=== PATIENT | male | born 1955 | race Caucasian/White ===

== ENCOUNTER → 2021-01-05 | Outpatient (CLI) | payer OTHER ==
[2021-01-05 10:41] VITALS: BP 134/83
--- NOTE | 2021-01-06 13:15 | NUCLEAR STRESS TEST ---
TREADMILL NUCLEAR STRESS TEST Date of procedure: 01/05/2021. Primary care provider: Unknown. Admitting physician: Brian Luu Jr., MD. INDICATION: Abnormal ECG. BASELINE ELECTROCARDIOGRAM: Sinus rhythm with occasional premature ventricular complexes and possible old anterior myocardial infarction STRESS TEST PROCEDURE: The patient was exercised for a total of 7 minutes and 8 seconds of the standard Perez protocol achieving a maximum MET level of 8.5. The resting heart rate was 60 bpm and the peak heart rate was 142 bpm, which represents 91% of the maximum predicted heart rate. The resting blood pressure was 144/82 mmHg and the peak blood pressure was 166/79 mmHg. This represents a normal heart rate and a normal blood pressure response to exercise. The test was stopped due to fatigue. There was no chest discomfort during the test. There were frequent premature ventricular complexes as isolated and couplet beats during the test. There were no significant stress induced e lectrocardiogram changes. The patient exhibited good exercise capacity for age. NUCLEAR PROCEDURE: The patient was administered 10.2 mCi of intravenous technetium 99m Tetrofosmin at rest for the rest images. The patient was subsequently administered 30.3 mCi of intravenous technetium 99 M Tetrofosmin at peak stress for the stress images. Following an appropriate wait after each injection, imaging was obtained. The images were subsequently processed and reformatted in the usual views. Gated imaging was obtained. The image quality was adequate but with some gastrointestinal attenuation artifact. CT attenuation correction was used as a adjunct to standard imaging. Both the corrected and uncorrected images were reviewed for interpretation. NUCLEAR RESULTS: There was a small, moderate intensity, fixed apical defect with no evidence of ischemia. There was normal left ventricular chamber size with an end-diastolic volume of 119 mL and an end-systolic volume of 74 mL. There was no evidence of transient ischemic dilatation. The TID ratio was 0.96. There was moderate global hypokinesis with a calculated ejection fraction of 38%. IMPRESSION: 1. Normal heart rate and blood pressure response to exercise. 2. There was no exercise-induced chest discomfort. 3. There were frequent premature ventricular complexes during the test as isolated and couplet beats. 4. There were no stress-induced electrocardiogram changes. 5. The patient exhibited good exercise capacity for age at 7 minutes and 8 seconds. 6. There was a small, moderate intensity, fixed apical defect with no evidence of ischemia. 7. There was moderate global hypokinesis with a calculated ejection fraction of 38%. 9. This is an abnormal result showing a fixed perfusion defect with moderate left ventricular dysfunction making this a moderate risk result. Certain portions of this document may have been dictated utilizing voice recognition technology. Inherent to this technology, typographical and grammatical errors may exist. As much as I am diligent to identify and correct these mistakes, some errors may remain in the document. BRIAN LUU JR, MD Jan 06, 2021 13:15
== END ==
LOC: CARD 08:04
PROVIDERS: ATTEND Internal Medicine Cardiovascular Disease
DX: R94.31 Abnormal electrocardiogram [ECG] [EKG] (principal)
CPT/HCPCS: 78452; 93017

== ENCOUNTER 2021-02-02 09:00 | Day surgery (SDC) | payer OTHER ==
[~2021-02-02] VITALS: Ht 193 cm; Wt 68.2 kg
[2021-02-02] VITALS (10 sets, daily range): BP systolic 123–146; BP diastolic 56–68
--- OUTSIDE RECORDS SUMMARY | 2021-02-02 07:55 | XMS REPORT | Clinical Summary ---
Author Author [facility] Organization [facility] Address Unknown Phone Unavailable Care Team Providers Care Appliance Repairer Name Role Phone Anne Marie Jos M COMMERCIAL FISHER-WASTE PAPER HAMMERMILL OPERATOR PCP Source Comments Some departments are not documenting in the electronic medical record. If you d o not see the information that you expected, contact Release of Information in [facility] Information Management department at [phone] for further assistan ce in locating additional records.[facility] Allergies No Known Active Allergies Medications End Date Status Medication Sig Dispensed Refills Start Date Active aspirin EC 81 mg tablet Take 81 mg by 0 mouth daily. Take with food. Active losartan (COZAAR) 50 mg Take 50 mg by 0 tablet mouth daily. Active fish oil /omega-3 fatty Take 1 0 acids (SEA-OMEGA) capsule by 340/1000 mg capsule mouth daily. Active Problems Problem Noted Date LBBB (left bundle branch block) 04/21/2019 PVCs (premature ventricular contractions) 2018 Hypertension goal BP (blood pressure) < 140/90 05/13 PVC (premature ventricular contraction) 05/12/2018 Overview: Formatting of this note might be differ ent from the original. 02/2018 [place] ([place] Very frequent PVCs se en. MIld to moderately reduced LV systolic function; LVEF 40+-5%. Trace M R, TR, PI. 02/04/18 Stress test ([place]): normal myocard ial perfusion at rest and at stress. Septal hypokinesis is consistent with L BBB. LVEF moderately decreased at 40%. 05/30/18 Treadmill: Stress ECG on tread mill for 6 minutes 39 seconds (7 METS) to 89% predicted maximum HR (achi eved peak HR of 141 bpm). No hypertensive response with exercise. PVCs were suppressed with exercise but resumed during recovery. There were no signficant arrhythmias with exercise. The stress ECG was non-diagno stic for ischemia due to development of LBBB within 1st minute of exercise t hat persisted during stress but resolved on rest at the end of the stud y. 07/28/18 Holter: Holter monitor ran 23 hours 50 minutes. The rhythm was sinus at 47-97 bpm with a mean of 72 bp m. When the heart rate is in the 90s she has a rate related IVCD. There are 6 isolated APD's. There are no couplets or runs. There is no A. fib o r a flutter. 3.7% of all beats are PVCs (3960). There are 11 couplets. T here is one 5 beat run at one 8 beat run. These start slow and warm up to a bout 170 bpm. About one third of the PVCs are bigeminal. PVCs are essen tially 1 morphology. This includes the repetitive forms. AV conduction is 1: 1. There are no pauses. The maximum heart rate is less than 100 sug gesting that she was either very sedentary or she has chronotropic incom petence 06/11/18 EP Study: Successful ablation of PVCs from the LV summit. Normal His Purkinje function. No proximal cor onary artery abnormalities near the area of ablation Non-ischemic cardiomyopathy 05/12/2018 Overview: Formatting of this note might be differ ent from the original. 02/2018 [place] ([place]): Very frequent PVCs se en. MIld to moderately reduced LV systolic function; LVEF 40+-5%. Trace M R, TR, PI. 06/11/18 Coronary angiography: The left main coronary artery is a short vessel which immediately trifurcates in to LAD, circumflex, and ramus. There is extraluminal calcification but no significant stenosis is seen. The LAD is a medium caliber vessel whic h has a 30% stenosis in the midportion, but no high-grade lesions p roximally in the location of ablation. The distal portions of the v essel were not well seen given the limitation in angulation and views. Th e ramus vessel is medium in caliber and has a 30% stenosis in its midportio n, but no high-grade lesions are seen. The circumflex is a medium calib er dominant vessel which gives off 2 obtuse marginal branches and a left-chris ed PDA. There is diffuse mild plaquing but no significant stenosis is seen. 11/05/18 Echo: Borderline to mildly decre ased left ventricular contractility: Estimated LVEF 50%. Normal right ventri cular contractility. Pulmonary artery, pulmonic valve, and aortic arch are not well visualized. Trace pulmonic regurgitation. Mild mitral mary ular calcification. Trace mitral regurgitation. Normal aortic and tricus pid valve motion. Trace tricuspid regurgitation. Estimated PA pressure 30 mmHg. 01/06/19 [place] ([place]): Normal chamber size. EF 50-55%. Trace TR, AI, mild MR. IVC normal, RVSP 32mmHg. Frequent PVCs . Resolved Problems Problem Noted Date Resolved Date Chronic combined systolic and diastolic CHF, NYHA class 2 05/13/2018 11/05/2018 Medical History Medical History Date Comments PVC's (premature ventricular contractions) Chronic systolic heart failure (HCC) Borderline hypertension Family History Relation Name Status Comments Father Mother Social History Date Tobacco Use Types Packs/Day Years Used Quit: 01/17/2018 Former Smoker Cigarettes 0.5 17 Smokeless Tobacco: Never Used Comments Alcohol Use Standard Drinks/Week No 0 (1 standard drink = 0.6 o z pure alcohol) Alcohol Habits Answer Date Recorded How often do you have a drink containing alcohol? Never 05/12/2018 How many drinks containing alcohol do you have on No t asked a typical day when you are drinking? How often do you have six or more drinks on one Not asked occasion? Comment: Not asked Sex Assigned at Date Recorded Not on file Last Filed Vital Signs Reading Time Taken Comments Vital Sign 140/70 04/20/2019 10:16 AM VACUUM FORM OPERATOR Blood Pressure 93 04/20/2019 10:16 AM VACUUM FORM OPERATOR Pulse 36.6 C (97.8 F) 06/12/2018 9:29 AM VACUUM FORM OPERATOR Temperature - - Respiratory Rate 94% 06/12/2018 9:29 AM VACUUM FORM OPERATOR Oxygen Saturation - - Inhaled Oxygen Concentration 71.9 kg (158 lb 8 oz) 04/20/2019 10:16 AM VACUUM FORM OPERATOR Weight 193 cm (6' 4") 04/20/2019 10:16 AM VACUUM FORM OPERATOR Height 19.29 04/20/2019 10:16 AM VACUUM FORM OPERATOR Body Mass Index Plan of Treatment Health Maintenance Due Date Last Done Comments HIV SCREENING 1970 DTAP/TDAP VACCINES ( - 1973 Tdap) HEPATITIS C SCREENING 1973 PHYSICAL (COMPREHENSIVE) 1973 EXAM COLORECTAL CANCER 2005 SCREENING SHINGLES RECOMBINANT 2005 VACCINE (1 of 2) ABDOMINAL AORTIC ANEURYSM 2020 SCREENING PNEUMONIA (PPSV23) 2020 VACCINE (1 of 1 - PPSV23) INFLUENZA VACCINE 03/03/2021 Results Not on filefrom Last 3 Months Insurance Type Payer Benefit Subscriber ID Effective Phone Address Plan / Dates Group Medicare [employer] [id number] 2018-P CHOICE resent [id number] [facility] (Home) [place] [id number] Advance Directives Patient Senior Foreman Explanation Type Date Recorded Advance 2018 6:11 AM Directive/DPOA Date Inactivated Comments Code Status Date Activated 06/12/2018 12:22 PM Full Code 2018 6:20 AM Provider has discussed Code Status No, discussion no t w/Patient or Family? necessary based on Dx
--- NOTE | 2021-02-02 08:44 | Pre-Op Note & Conscious Sedat ---
Pre-Operative Progress Note H&P Reviewed The H&P was reviewed, patient examined and no changes noted. Date H&P Reviewed: Feb 02, 2021 Time H&P Reviewed: 08:43 Pre-Op Diagnosis: Cardiomyopathy Conscious Sedation Pre-Proced ASA Score 2 For ASA 3 and 4: Consider anesthesia and medical clearance. Also, for patients with a history of failed moderate sedation consider anesthesia. Airway Lungs Heart ASA score ASA 1: a normal healthy patient ASA 2: a patient with a mild systemic disease (mid diabetes, controlled hypertension, obesity ASA 3: a patient with a severe systemic disease that limits activity (angina, COPD, prior Myocardial infarction) ASA 4: a patient with an incapacitating disease that is a constant threat to life (CHF, renal failure) ASA 5: a moribund patient not expected to survive 24 hrs. (ruptured aneurysm) ASA 6: a declared brain- patient whose organs are being harvested. For emergent operations, add the letter E after the classification Mallampati Classification Grade 1 Sedation Plan Analgesia, Amnesia, Plan communicated to team members, Discussed options with patient/fam, Discussed risks with patient/fam The patient is an appropriate candidate to undergo the planned procedure, sedation, and anesthesia. The patient immediately re-assessed prior to indication. CHANTE LAIRD JR, MD Feb 02, 2021 08:44
[~2021-02-02 09:00] MED LIST: ASPI-1238 PO; ASPIRIN 81 MG CHEW (CHILDREN'S ASA) PO ONE; CATHETER FLUSH 10 ML SYR IV PRN; CHOL10007 PO; HEParin (CATH LAB) 2,000 ML IV ONE; HEParin 1000 UNIT/ML (10ML VIAL) FOR BOLUS ONE; LIDOCAINE 1% INJ 20 ML 20 ML VIAL ONE; LOSA100T57 PO; METO50TA7 PO; NS IV 1000 ML 1,000 ML IV ONE; NS IV 1000 ML 1,000 ML ONE; OMG1KC PO
[2021-02-02] MEDS ORDERED: NS IV 1000 ML 1,000 ML IV SCH (09:45)
[2021-02-02] MEDS ORDERED: PATIENT MAY USE OWN MEDS, ALL PO SCH (09:45)
--- NOTE | 2021-02-02 09:45 | Cardiac Cath Report ---
CARDIAC CATHETERIZATION DATE OF PROCEDURE: 02/02/2021 INDICATION: Cardiomyopathy. HISTORY: The patient is a 65 year old male with a recently diagnosed cardiomyopathy who is now referred for a cardiac catheterization. PROCEDURES PERFORMED: 1. Left heart catheterization with hemodynamic measurements. 2. Diagnostic [place] coronary angiography. PROCEDURE DESCRIPTION: After informed consent and in the fasting state, left heart catheterization was performed through the right radial artery utilizing a 6 Serbian system by percutaneous approach. Standard Pippa catheters were utilized for the diagnostic portion of the procedure. All catheters were exchanged over a guidewire. RESULTS: HEMODYNAMICS: The aortic pressure was 108/47 mmHg. The left ventricular pressure was 106/0 mmHg with a left ventricular end-diastolic pressure of 10 mmHg. There was no significant pressure gradient upon pullback across aortic valve. CORONARY ANGIOGRAPHY: Left main coronary artery: Very short but free of significant disease. Left anterior descending coronary artery: There was a 30% stenosis in the ostium. Left circumflex coronary artery: Dominant and free of significant disease. Ramus intermedius: There was a moderate size ramus intermedius branch which contained a 70% stenosis in the ostium. Right coronary artery: Small, nondominant and free of significant disease. IMPRESSION: 1. Normal left heart pressures. 2. There was a moderate sized ramus intermedius branch which contained a 70% stenosis in the ostium. 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 3. The patient is known to have mild-moderate left ventricular systolic dysfunction with an estimated ejection fraction of 40-45% by echocardiogram obtained on 11/30/2020. Certain portions of this document may have been dictated utilizing voice recogn ition technology. Inherent to this technology, typographical and grammatical errors may exist. As much as I am diligent to identify and correct these mistakes, some errors may remain in the document. CHANTE LAIRD JR, MD Feb 02, 2021 09:45
== END 2021-02-02 12:35 | disposition home or self-care (01) ==
LOC: CATH 09:00 → SDC 09:55 → CATH 12:35
PROVIDERS: ATTEND Internal Medicine Cardiovascular Disease
DX: I42.9 Cardiomyopathy, unspecified (principal); I49.3 Ventricular premature depolarization; I12.9 Hypertensive chronic kidney disease with stage 1 through stage 4 chronic kidney disease, or unspecified chronic kidney disease; N18.30 Chronic kidney disease, stage 3 unspecified; I25.10 Atherosclerotic heart disease of native coronary artery without angina pectoris; Z79.82 Long term (current) use of aspirin; Z79.899 Other long term (current) drug therapy; Z87.891 Personal history of nicotine dependence
CPT/HCPCS: 93458

== ENCOUNTER → 2021-03-20 | Outpatient (CLI) | payer OTHER ==
[~2021-03-20] MED LIST changes: -ASPIRIN 81 MG CHEW (CHILDREN'S ASA) PO ONE; -CATHETER FLUSH 10 ML SYR IV PRN; -HEParin (CATH LAB) 2,000 ML IV ONE; -HEParin 1000 UNIT/ML (10ML VIAL) FOR BOLUS ONE; -LIDOCAINE 1% INJ 20 ML 20 ML VIAL ONE; -NS IV 1000 ML 1,000 ML IV ONE; -NS IV 1000 ML 1,000 ML ONE
== END ==
LOC: CARD 09:30
PROVIDERS: ATTEND Internal Medicine Cardiovascular Disease
DX: I42.9 Cardiomyopathy, unspecified (principal)
CPT/HCPCS: 93306

== ENCOUNTER → 2023-05-09 | Outpatient (CLI) | payer OTHER ==
[~2023-05-09] MED LIST changes: -LOSA100T57 PO; +LOSA100T58 PO
== END ==
LOC: CARD 15:00
PROVIDERS: ATTEND Internal Medicine Cardiovascular Disease
DX: I42.9 Cardiomyopathy, unspecified (principal)
CPT/HCPCS: 93306